=== PATIENT | male | born 1935 | race Caucasian/White ===

== ENCOUNTER 2022-04-02 04:17 | Outpatient (RCR) | payer SELFPAY | END 2022-09-20 14:51 | disposition home or self-care (01) | LOC: MOW 04:17 | PROVIDERS: PCP Family Medicine; Visit Provider Family Medicine | DX: Z76.0 Encounter for issue of repeat prescription (principal) | CPT/HCPCS: S5170 ==

== ENCOUNTER 2022-07-15 14:19 | Outpatient (REF) | payer MEDICARE, BC, SELFPAY ==
[2022-07-15 15:42] LABS: SARS PCR* Negative SARS-CoV-2 (Negative)
== END 2022-07-15 14:20 | disposition home or self-care (01) ==
LOC: NPINS 14:19
PROVIDERS: PCP Family Medicine; Visit Provider Family Medicine
DX: Z20.822 Contact with and (suspected) exposure to COVID-19 (principal)
CPT/HCPCS: 87635